=== PATIENT | female | born 1950 | race Caucasian/White ===

== ENCOUNTER 2016-07-13 07:00 | Outpatient (RCR) | payer OTHER | END 2016-07-21 | LOC: M PT 07:00 | PROVIDERS: ATTEND Internal Medicine Medical Oncology | DX: Z51.89 Encounter for other specified aftercare (principal); C50.819 Malignant neoplasm of overlapping sites of unspecified female breast | CPT/HCPCS: 97140; G8984; G8985; G8986 ==

== ENCOUNTER → 2017-03-09 | Outpatient (CLI) | payer OTHER ==
--- NOTE | 2017-03-09 09:18 | REP ---
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 Comparison CT study is from October 23, 2014. CT FINDINGS: There is no evidence of skull base normal mass. No bony destructive lesion is seen. Visualized paranasal sinuses are clear. No intraorbital abnormality is seen. The epiglottis and aryepiglottic folds are unremarkable. The arytenoid cartilages are symmetric. The true and false cords are symmetric. No laryngeal mass lesion is seen. Thyroid lobes are quite small as before, unchanged. The lung apices are clear. No neck adenopathy or mass lesion is seen. No abnormal cyst is seen. IMPRESSION: No neck mass or adenopathy seen. Signed by Vinicio Evangelista MD 03/09/2017 03:48 P
--- NOTE | 2017-03-09 09:31 | REP ---
CT of the chest without IV contrast: Comparison is a 09/14/2016. The the patient has bilateral mastectomies. There are surgical clips in the right and left axilla. There is no axillary lymph node enlargement. There is no mediastinal lymph node enlargement. In the absence of IV contrast the study is insensitive for hilar lymph node enlargement. There are no large lung masses. There is no Pancoast tumor. However, there are multiple tiny lung nodules, similar to the comparison CT. There is no Pancoast tumor. There is no mediastinal mass or tumor. There is a tiny focal zone of parenchymal scarring in the extreme apex of the right upper lobe, similar to 2016, but not present 06/09/2013. There are no acute infiltrates or effusions. The unenhanced thoracic aorta is unremarkable. Cardiac size is normal. There is no pericardial effusion. Half the visualized upper abdominal contents are unremarkable. There are surgical clips in the gallbladder fossa. Impression: Bilateral mastectomies. Surgical clips in the right and left axilla. No axillary lymph node enlargement or mass. No mediastinal adenopathy or mass. No Pancoast tumor. Small lung nodules as described, similar to 09/14/2016. Tiny focal zone of pleural parenchymal scarring in the extreme apex of the right lung as described. Cholecystectomy. Signed by Pro Mtz MD 03/09/2017 09:23 A
== END ==
LOC: M RAD 07:54
PROVIDERS: ATTEND Otolaryngology
DX: J38.01 Paralysis of vocal cords and larynx, unilateral (principal); R59.0 Localized enlarged lymph nodes; R91.8 Other nonspecific abnormal finding of lung field; J98.4 Other disorders of lung; Z90.13 Acquired absence of bilateral breasts and nipples

== ENCOUNTER → 2017-06-23 | Outpatient (CLI) | payer OTHER | LOC: M WUC 15:29 | DX: M17.0 Bilateral primary osteoarthritis of knee (principal) | CPT/HCPCS: 73564 ==

== ENCOUNTER → 2017-12-27 | Outpatient (REF) ==
[2017-12-27 11:23] LABS: RUBELLA IgG QUALITATIVE IMMUNE (IMMUNE)
== END ==
LOC: M LAB 10:14
DX: Z00.00 Encounter for general adult medical examination without abnormal findings (principal)

== ENCOUNTER → 2019-05-26 | Outpatient (CLI) | payer OTHER ==
--- NOTE | 2019-05-26 19:45 | REP ---
CHEST, PA AND LATERAL: 05/26/2019. Comparison: CT chest 03/09/2017. Clinical history: Cough, acute bronchitis symptoms. Prior bilateral mastectomies. Findings: Lungs are well inflated. The CP angles sharply defined. There is no lateral pleural thickening, apical scarring or pneumothorax. No infiltrate, nodule or mass. The heart, mediastinal and hilar contours are normal. There are bilateral numerous axillary and chest wall surgical clips from mastectomies. The aorta and airway intact. Bony thorax shows no acute compression deformity with small marginal osteophytes. There are upper abdominal surgical clips from prior cholecystectomy. Impression: 1. No acute cardiopulmonary disease. The patient is status post bilateral mastectomy with axillary lymph node dissection. Electronically Signed by Julien Shrestha MD 05/26/2019 08:05 P
--- NOTE | 2019-05-26 19:47 | REP ---
SUPINE ABDOMEN: 05/26/2019. Clinical history: Abdominal pain. Two views to encompass the entirety of the abdomen were provided. The pelvic ring is intact. Pubic rami, symphysis pubis, SI joints and iliac wings unremarkable. Minor degenerative changes with slight narrowing of the left hip joint space compared to right, both with small rim osteophytes acetabulum. There is facet arthropathy lower lumbar spine and marginal osteophytes throughout the lumbar and lower thoracic region. There are right upper quadrant surgical clips. Scattered stool and gas throughout the colon, more on the right than left and transverse. No dilated small bowel loops or colon. No abnormal calcifications over the renal fossae or expected course of the ureters. Right upper quadrant clips from prior cholecystectomy. Impression: 1. Some degenerative disc and facet arthritic changes in the lumbar spine without compression deformity or destructive lesion. 2. Right upper quadrant clips from prior cholecystectomy. 3. Nonspecific gas pattern. Electronically Signed by Julien Shrestha MD 05/26/2019 08:05 P
[2019-05-26 20:42] LABS: BASO # 0.1 10^3/uL (0.0-0.2); BASO % 0.5 % (0.0-1.0); EOS # 0.2 10^3/uL (0.0-0.5); EOS % 1.7 % (0.0-3.0); HEMATOCRIT 47.6 % (36.0-47.0); HEMOGLOBIN 15.2 g/dl (12.0-15.5); LYMPH # 2.4 10^3/uL (1.5-5.0); LYMPH % 25.5 % (24.0-44.0); MEAN CORPUSCULAR HEMOGLOBIN 29.6 pg (27.0-33.0); MEAN CORPUSCULAR HGB CONC 31.9 g/dl (32.0-36.5); MEAN CORPUSCULAR VOLUME 92.6 fl (80.0-96.0); MONO # 0.8 10^3/uL (0.0-0.8); MONO % 8.3 % (0.0-5.0); NEUTROPHILS # 6.1 10^3/uL (1.5-8.5); NEUTROPHILS % 63.7 % (36.0-66.0); PLATELET COUNT, AUTOMATED 265 10^3/uL (150-450); RED BLOOD COUNT 5.14 10^6/uL (4.00-5.40); WHITE BLOOD COUNT 9.6 10^3/uL (4.0-10.0)
[2019-05-26 20:48] LABS: ALBUMIN 3.8 GM/DL (3.2-5.2); BILIRUBIN,TOTAL 0.6 MG/DL (0.2-1.0); CALCIUM LEVEL 9.1 MG/DL (8.8-10.2); CREATININE FOR GFR 1.11 MG/DL (0.55-1.30); GLOMERULAR FILTRATION RATE 51.9 (>45); POTASSIUM SERUM 4.1 MEQ/L (3.5-5.1); TOTAL PROTEIN 7.1 GM/DL (6.4-8.2)
== END ==
LOC: M WUC 18:02
PROVIDERS: ATTEND Physician Assistant
DX: M51.36 Other intervertebral disc degeneration, lumbar region (principal); J20.9 Acute bronchitis, unspecified; R05 Cough

== ENCOUNTER 2020-01-07 18:11 | Emergency (ER) | payer MEDICARE ==
[~2020-01-07] VITALS: Ht 162.6 cm; Wt 102.2 kg
[2020-01-07 18:12] VITALS: BP 183/80
[2020-01-07] MEDS ORDERED: D3 +TAB PO (18:28)
[2020-01-07] MEDS ORDERED: CALTCHW5 PO (18:28)
[2020-01-07] MEDS ORDERED: CENTCHW4 PO (18:28)
[2020-01-07] MEDS ORDERED: LEVO100T5 (18:28)
[2020-01-07] MEDS ORDERED: METF500T13 (18:28)
[2020-01-07] MEDS ORDERED: JARD1TAB (18:28)
[2020-01-07] MEDS ORDERED: CITA20TA6 (18:28)
[2020-01-07] MEDS ORDERED: VENTAER INH (18:28)
[2020-01-07] MEDS ORDERED: MELO15TA28 (18:28)
[2020-01-07] MEDS ORDERED: ANAS1TAB2 (18:28)
[2020-01-07] MEDS ORDERED: diphenhydrAMINE 50MG CAP PO ONE (19:00)
== END 2020-01-07 19:13 | disposition home or self-care (01) ==
LOC: M ED 18:11
DX: S40.861A Insect bite (nonvenomous) of right upper arm, initial encounter (principal); W57.XXXA Bitten or stung by nonvenomous insect and other nonvenomous arthropods, initial encounter; Z88.6 Allergy status to analgesic agent; Z88.5 Allergy status to narcotic agent; Z91.030 Bee allergy status; Z91.048 Other nonmedicinal substance allergy status; J45.909 Unspecified asthma, uncomplicated; E11.9 Type 2 diabetes mellitus without complications; Z85.3 Personal history of malignant neoplasm of breast; Z79.84 Long term (current) use of oral hypoglycemic drugs; Z79.899 Other long term (current) drug therapy; F41.9 Anxiety disorder, unspecified; F32.9 Major depressive disorder, single episode, unspecified

== ENCOUNTER → 2020-05-28 | Outpatient (CLI) | payer SELFPAY ==
[~2020-05-28] MED LIST: ANAS1TAB2; CALTCHW5 PO; CENTCHW4 PO; CITA20TA6; D3 +TAB PO; JARD1TAB; LEVO100T5; MELO15TA28; METF500T13; VENTAER INH
== END ==
LOC: M LABSMTC 16:02
PROVIDERS: ATTEND Pediatrics
DX: Z11.59 Encounter for screening for other viral diseases (principal)

== ENCOUNTER → 2022-11-13 | Outpatient (CLI) | payer MEDICARE, OTHER | LOC: M WUC 11:11 | PROVIDERS: ATTEND Internal Medicine | DX: M25.552 Pain in left hip (principal); M25.562 Pain in left knee ==

== ENCOUNTER → 2023-09-20 | Outpatient (CLI) | payer MEDICARE | LOC: M WUC 15:16 | PROVIDERS: ATTEND Internal Medicine | DX: J06.9 Acute upper respiratory infection, unspecified (principal) ==

== ENCOUNTER → 2023-10-30 | Outpatient (CLI) | payer MEDICARE | LOC: M RAD 14:43 | PROVIDERS: ATTEND Internal Medicine | DX: G31.84 Mild cognitive impairment of uncertain or unknown etiology (principal) ==

== ENCOUNTER → 2024-03-22 | Outpatient (CLI) | payer MEDICARE ==
[2024-03-22 11:59] LABS: BASO % 0.6 % (0.0-1.0); EOS # 0.1 10^3/uL (0.0-0.5); EOS % 0.7 % (0.0-3.0); HEMATOCRIT 46.6 % (36.0-47.0); HEMOGLOBIN 15.4 g/dl (12.0-15.5); LYMPH # 1.2 10^3/uL (1.5-5.0); LYMPH % 16.9 % (24.0-44.0); MEAN CORPUSCULAR VOLUME 90.8 fl (80.0-96.0); MONO # 0.5 10^3/uL (0.0-0.8); MONO % 7.5 % (2.0-8.0); NEUTROPHILS # 5.3 10^3/uL (1.5-8.5); PLATELET COUNT, AUTOMATED 283 10^3/uL (150-450); RED BLOOD COUNT 5.13 10^6/uL (4.00-5.40); WHITE BLOOD COUNT 7.2 10^3/uL (4.0-10.0)
[2024-03-22 12:21] LABS: HEMOGLOBIN A1c 8.1 % (4.0-6.0)
[2024-03-22 12:22] LABS: CREATININE, URINE 64.9 MG/DL; MALB URINE SIEMENS < 3.0 MG/L; MAU/CREAT RATIO 4.6 MCG/MG (0.0-30.0)
[2024-03-22 12:25] LABS: ALBUMIN 3.8 G/DL (3.2-5.2); ALKALINE PHOSPHATASE 98 U/L (46-116); ALT/SGPT 25 U/L (7.0-40); AST/SGOT 15 U/L (<34); BILIRUBIN,TOTAL 0.7 MG/DL (0.3-1.2); BLOOD UREA NITROGEN 24 MG/DL (9-23); CALCIUM LEVEL 10.1 MG/DL (8.3-10.6); CARBON DIOXIDE LEVEL 28 MMOL/L (20-31); CHLORIDE LEVEL 103 MMOL/L (98-107); CHOLESTEROL LEVEL 154 MG/DL (<200); CHOLESTEROL RISK RATIO 2.42 (<5); CREATININE FOR GFR 0.95 MG/DL (0.55-1.30); GLOMERULAR FILTRATION RATE > 60.0 (>39); GLUCOSE, FASTING 286 MG/DL (74-106); HDL CHOLESTEROL 63.6 MG/DL (>40); LDL CHOLESTEROL 74.6 MG/DL (<100); NON-HDL-C 90.4 MG/DL; POTASSIUM SERUM 4.2 MMOL/L (3.5-5.1); SODIUM LEVEL 137 MMOL/L (136-145); TOTAL PROTEIN 6.9 G/DL (5.7-8.2); TRIGLYCERIDES LEVEL 79 MG/DL (<150)
[2024-03-22 12:26] LABS: FREE T4 1.28 NG/DL (0.89-1.76); THYROID STIMULATING HORMONE 1.623 uIU/ML (0.55-4.78)
== END ==
LOC: M WUC 09:12
PROVIDERS: ATTEND Internal Medicine
DX: Z00.00 Encounter for general adult medical examination without abnormal findings (principal); E11.9 Type 2 diabetes mellitus without complications; E03.9 Hypothyroidism, unspecified

== ENCOUNTER → 2025-03-28 | Outpatient (CLI) | payer MEDICARE ==
[2025-03-28 15:22] LABS: BASO # 0.1 10^3/uL (0.0-0.2); BASO % 0.5 % (0.0-1.0); EOS # 0.1 10^3/uL (0.0-0.5); EOS % 0.6 % (0.0-3.0); LYMPH # 2.0 10^3/uL (1.5-5.0); LYMPH % 20.7 % (24.0-44.0); MONO # 0.8 10^3/uL (0.0-0.8); MONO % 7.7 % (2.0-8.0); NEUTROPHILS # 6.8 10^3/uL (1.5-8.5); NEUTROPHILS % 70.2 % (36.0-66.0); PLATELET COUNT, AUTOMATED 325 10^3/uL (150-450)
[2025-03-28 15:36] LABS: ERYTHROCYTE SEDIMENTATION RATE 15 mm/hr (0-30)
[2025-03-28 15:46] LABS: C REACTIVE PROTEIN QUANTITATIV < 0.50 MG/DL (<1.0); IRON (FE) 70 UG/DL (50-170)
[2025-03-28 15:47] LABS: ALT/SGPT 26 U/L (7.0-40); AST/SGOT 21 U/L (<34)
[2025-03-28 15:55] LABS: PERCENT SATURATION 24.6 % (13.2-45.0)
[2025-04-05 19:10] LABS: IMMUNOGLOBULIN A CELIAC 306 mg/dL (70-320); t-TRANSGLUTAMINASE(tTG) IgA < 1.0 U/mL (<15.0); t-TRANSGLUTAMINASE(tTG) IgG < 1.0 U/mL (<15.0)
== END ==
LOC: M WUC 11:47
PROVIDERS: ATTEND Internal Medicine Gastroenterology
DX: R10.9 Unspecified abdominal pain (principal); K52.9 Noninfective gastroenteritis and colitis, unspecified; Z79.899 Other long term (current) drug therapy

== ENCOUNTER → 2025-03-30 | Outpatient (REF) | payer MEDICARE | LOC: M LAB REF 14:05 | PROVIDERS: ATTEND Internal Medicine Gastroenterology | DX: R19.7 Diarrhea, unspecified (principal); R10.9 Unspecified abdominal pain; A04.8 Other specified bacterial intestinal infections ==